=== PATIENT | male | born 1945 | race Caucasian/White ===

== ENCOUNTER → 2021-01-25 | Outpatient (CLI) | payer MEDICARE ==
[~2021-01-25] MED LIST: ALBU90OI; ALBU90OI INH; ASPI81CH PO; ATOR10 PO; Advair Hfa 230-12 GM INH; Bactrim Ds Tab1 EACH PO; CEFP200 PO; FINA5 PO; Flovent Disku100 MCG INH; IPRAOI; Lotensin Hct 21 EAC1 PO; NAPR500 PO; OXYB5 PO; Pyridium200 MG PO; [UNRECOGNIZED DRUG - REMARK]
== END | disposition home or self-care (01) ==
LOC: LAB 18:41 → LAB SHORT 18:41
DX: R30.9 Painful micturition, unspecified (principal)
CPT/HCPCS: 87077; 87086; 87186

== ENCOUNTER → 2021-03-12 | Outpatient (CLI) | payer MEDICARE | END | disposition home or self-care (01) | LOC: LAB 09:10 → LAB SHORT 09:10 | DX: H60.91 Unspecified otitis externa, right ear (principal) | CPT/HCPCS: 87070; 87077; 87147; 87186; 87205 ==

== ENCOUNTER → 2022-03-22 | Outpatient (CLI) | payer OTHER | END | disposition home or self-care (01) | LOC: LAB SHORT 14:18 → LAB 14:18 | DX: N39.0 Urinary tract infection, site not specified (principal) | CPT/HCPCS: 87077; 87086; 87186 ==

== ENCOUNTER → 2022-04-09 | Outpatient (CLI) | payer OTHER | END | disposition home or self-care (01) | LOC: LAB SHORT 16:00 → LAB 16:00 | DX: N39.0 Urinary tract infection, site not specified (principal) | CPT/HCPCS: 87077; 87086; 87186 ==

== ENCOUNTER 2023-04-29 09:56 | Day surgery (SDC) | payer OTHER ==
[~2023-04-29] VITALS: Ht 193 cm; Wt 191.8 kg
--- NOTE | 2023-04-29 10:58 | NUR ---
04/29/23 1058 Kim Simon TETRACAINE IN RIGHT EYE AT 1034. PLEDGET IN RIGHT EYE AT 1035. PATIENT TOLERATED WELL.
[2023-04-29 12:18] VITALS: BP 142/72
--- NOTE | 2023-04-29 12:23 | NUR ---
04/29/23 1223 Ninfa Orona IV REMOVED, CANNULA INTACT. PT STEPHANIE WELL. IV SITE WNL. PT DENIES PAIN AND NAUSEA
== END 2023-04-29 12:40 | disposition home or self-care (01) ==
LOC: ORSCSDS 09:56
PROVIDERS: Student in an Organized Health Care Education/Training Program
PROC: 08RJ3JZ Replacement of Right Lens with Synthetic Substitute, Percutaneous Approach (ICD-10-PCS; principal; 2023-04-29 11:00)
DX: H25.13 Age-related nuclear cataract, bilateral (principal); N40.0 Benign prostatic hyperplasia without lower urinary tract symptoms; G47.33 Obstructive sleep apnea (adult) (pediatric); I10 Essential (primary) hypertension; J44.9 Chronic obstructive pulmonary disease, unspecified; E78.5 Hyperlipidemia, unspecified; Z87.891 Personal history of nicotine dependence; K21.9 Gastro-esophageal reflux disease without esophagitis; E66.01 Morbid (severe) obesity due to excess calories; Z68.43 Body mass index [BMI] 50.0-59.9, adult; Z79.82 Long term (current) use of aspirin; Z79.899 Other long term (current) drug therapy
CPT/HCPCS: J2250; J7040; V2632

== ENCOUNTER 2023-05-13 08:13 | Day surgery (SDC) | payer OTHER ==
[~2023-05-13] VITALS: Ht 193 cm; Wt 194.7 kg
--- NOTE | 2023-05-13 08:56 | NUR ---
05/13/23 0856 Trini Tineo TETRACAINE TO LEFT EYE AT 0855 PLEDGET TO LEFT EYE AT 0856 BY [facility].[email or web address]
[2023-05-13 10:41] VITALS: BP 1520/82
--- NOTE | 2023-05-13 10:48 | NUR ---
05/13/23 1048 NILSON JOHNSON IV REMOVED - WNL. CANNULA INTACT, STEPHANIE WELL.
== END 2023-05-13 11:05 | disposition home or self-care (01) ==
LOC: ORSCSDS 08:13
PROVIDERS: Student in an Organized Health Care Education/Training Program
PROC: 08RK3JZ Replacement of Left Lens with Synthetic Substitute, Percutaneous Approach (ICD-10-PCS; principal; 2023-05-13 09:30)
DX: H25.12 Age-related nuclear cataract, left eye (principal); Z96.1 Presence of intraocular lens; I10 Essential (primary) hypertension; J44.9 Chronic obstructive pulmonary disease, unspecified; G47.33 Obstructive sleep apnea (adult) (pediatric); E66.01 Morbid (severe) obesity due to excess calories; Z68.43 Body mass index [BMI] 50.0-59.9, adult; Z79.899 Other long term (current) drug therapy; Z79.82 Long term (current) use of aspirin
CPT/HCPCS: J2250; J3010; J7040; V2632

== ENCOUNTER → 2024-11-17 | Outpatient (CLI) | payer OTHER ==
[~2024-11-17] MED LIST changes: +ALLOPURINOL100 M1 PO; +AMOX-CLAV 875-1 EAC5 PO; +BENAZEPRIL HCL40 M4 PO; +FUROSEMIDE40 MG PO; +Potassium Chlo20 ME1 PO; +SULFAMETHOXAZO1 EAC1 PO; +TAMSULOSIN HCL0.4 M1 PO; +VALACYCLOVIR1000 MG PO
[2024-11-17 13:18] LABS: BASOPHILS ABSOLUTE AUTO 0.05 K/mm3 (0.00-0.23); BASOPHILS PERCENT AUTO 1 % (0-2); EOSINOPHILS ABSOLUTE AUTO 0.16 K/mm3 (0.00-0.68); EOSINOPHILS PERCENT AUTO 2 % (0-6); Hematocrit 41.8 % (37.0-53.0); Hemoglobin 13.7 g/dL (13.5-17.5); IMMATURE GRAN ABSOLUTE AUTO 0.03 K/mm3 (0.00-0.10); IMMATURE GRAN PERCENT AUTO 0 % (0-1); LYMPHOCYTES ABSOLUTE AUTO 0.57 K/mm3 (0.84-5.20); LYMPHOCYTES PERCENT AUTO 7 % (21-46); MONOCYTES PERCENT AUTO 6 % (4-13); Mean Corpuscular HGB Conc 32.8 g/dL (31.5-36.5); Mean Corpuscular Volume 92 fL (80-100); Mean Platelet Volume 9.5 fL (9.1-12.4); NEUTROPHILS ABSOLUTE AUTO 6.56 K/mm3 (1.96-9.15); NEUTROPHILS PERCENT AUTO 83 % (41-73); Platelet Count 215 K/mm3 (150-400); RDW Coefficient Variation 14.6 % (11.7-14.2); RDW Standard Deviation 48.5 fL (35.1-46.3); Red Blood Cell Count 4.57 M/mm3 (4.30-5.90); White Blood Cell Count 7.87 K/mm3 (4.00-11.30)
[2024-11-17 13:32] LABS: Albumin, Blood 2.8 g/dL (3.4-5.0); Albumin/Globulin Ratio 0.7 (0.8-1.8); Bilirubin, Total 0.5 mg/dL (0.1-1.0); Bun/Creatinine Ratio 23.8 (12.0-20.0); Calcium, Blood 9.4 mg/dL (8.5-10.1); Creatinine, Blood 1.26 mg/dL (0.60-1.20); Globulin, Blood 4.3 g/dL (2.2-4.0); Potassium, Blood 4.1 mmol/L (3.5-5.5); Total Protein, Blood 7.1 g/dL (6.4-8.2)
== END | disposition home or self-care (01) ==
LOC: LAB SHORT 13:14 → LAB 13:14
PROVIDERS: Chiropractor
DX: L03.116 Cellulitis of left lower limb (principal)
CPT/HCPCS: 80053; 83605; 85025

== ENCOUNTER 2024-11-20 12:37 | Inpatient (IN) | payer OTHER ==
[~2024-11-20] VITALS: Ht 193 cm; Wt 182.4 kg
[~2024-11-20 12:37] MED LIST changes: -ALLOPURINOL100 M1 PO; -AMOX-CLAV 875-1 EAC5 PO; -BENAZEPRIL HCL40 M4 PO; -FUROSEMIDE40 MG PO; -Potassium Chlo20 ME1 PO; -SULFAMETHOXAZO1 EAC1 PO; -TAMSULOSIN HCL0.4 M1 PO; -VALACYCLOVIR1000 MG PO
[2024-11-20 13:40] LABS: Hematocrit 39.7 % (37.0-53.0); Mean Corpuscular HGB 29.9 pg (26.0-34.0); Mean Corpuscular HGB Conc 32.7 g/dL (31.5-36.5); Mean Corpuscular Volume 91 fL (80-100); Mean Platelet Volume 9.3 fL (9.1-12.4); Platelet Count 287 K/mm3 (150-400); RDW Coefficient Variation 14.6 % (11.7-14.2); RDW Standard Deviation 49.1 fL (35.1-46.3); Red Blood Cell Count 4.35 M/mm3 (4.30-5.90); White Blood Cell Count 9.85 K/mm3 (4.00-11.30)
[2024-11-20 13:58] LABS: Albumin, Blood 2.6 g/dL (3.4-5.0); Albumin/Globulin Ratio 0.6 (0.8-1.8); Bilirubin, Total 0.5 mg/dL (0.1-1.0); Bun/Creatinine Ratio 17.1 (12.0-20.0); Calcium, Blood 9.2 mg/dL (8.5-10.1); Creatinine, Blood 1.11 mg/dL (0.60-1.20); Globulin, Blood 4.4 g/dL (2.2-4.0); Potassium, Blood 4.1 mmol/L (3.5-5.5)
[2024-11-20] MEDS ORDERED: AMOX-CLAV 875-1 EAC5 PO (14:01)
[2024-11-20] MEDS ORDERED: VALACYCLOVIR1000 MG PO (14:01)
[2024-11-20] MEDS ORDERED: SULFAMETHOXAZO1 EAC1 PO (14:01)
[2024-11-20] MEDS ORDERED: BENAZEPRIL HCL40 M4 PO (14:02)
[2024-11-20] MEDS ORDERED: FINA5 PO (14:02)
[2024-11-20] MEDS ORDERED: FUROSEMIDE40 MG PO (14:02)
[2024-11-20] MEDS ORDERED: TAMSULOSIN HCL0.4 M1 PO (14:02)
[2024-11-20] MEDS ORDERED: Potassium Chlo20 ME1 PO (14:02)
[2024-11-20] MEDS ORDERED: ALLOPURINOL100 M1 PO (14:02)
[2024-11-20 14:08] LABS: BAND PERCENT MAN 3 % (0-8); BASOPHILS PERCENT MAN 0 % (0-2); EOSINOPHILS ABSOLUTE MAN 0.29 K/mm3 (0.00-0.68); EOSINOPHILS PERCENT MAN 3 % (0-6); LYMPHOCYTES ABSOLUTE MAN 0.78 K/mm3 (0.84-5.20); LYMPHOCYTES PERCENT MAN 8 % (21-46); METAMYELOCYTE ABSOLUTE MAN 0.09 K/mm3 (0.00-0.00); METAMYELOCYTE PERCENT MAN 1 % (0-0); MONOCYTES ABSOLUTE MAN 0.59 K/mm3 (0.16-1.47); MONOCYTES PERCENT MAN 6 % (4-13); MYELOCYTE ABSOLUTE MAN 0.19 K/mm3 (0.00-0.00); MYELOCYTE PERCENT MAN 2 % (0-0); NEUTROPHILS ABSOLUTE MAN 7.88 K/mm3 (1.96-9.15); SEG NEUTROPHILS PERCENT MAN 77 % (41-73); TOTAL CELLS COUNTED 100
[2024-11-20] MEDS ORDERED: CeFAZolin Sodium 2,000 MG in NS 100 ML IV ONE (14:50)
[2024-11-20] MEDS ORDERED: Vancomycin HCL 2,500 MG in NS 500 ML IV ONE (14:55)
[2024-11-20] MEDS ORDERED: FLU VACC TS2024-25(6MOS UP)/PF 45 MCG/0.5 ML SYRINGE IM SCH (15:25)
[2024-11-20] MEDS ORDERED: Mometasone/Formoterol MDI 200/5 mcg 13 GM INH SCH (15:30)
[2024-11-20] MEDS ORDERED: Albuterol HFA200 ACT/6.7 GM INH INH PRN (15:30)
[2024-11-20] MEDS ORDERED: NS 250 ML IV PRN (16:55)
[2024-11-20 17:11] VITALS: BP 153/91
--- NOTE | 2024-11-20 17:48 | NUR ---
pt arrived to 340 via gurney from ED, he is able to stand and tx to bed with assisst, a/ox4, pleasant and cooperative with care, follows commands well, denies pain at this time, as long as his leg is elevated, lungs are clear t/o, resp even and unlabored, uses cpap at hs without bleed in, no cough noted, hrr, edema noted to left le, piv to lac, site is clear and patent, infusing vanco as ordered, btx4, abd large soft nontender, voids without diff, skin has bright red lle, outlined line of demarcation, no open area, 4+ edema noted, rle is cool to touch, unable to palpate pulses, but found by doppler on both feet, jackson grover, oriented to room layout and call system, call light in reach.
[2024-11-20] MEDS ORDERED: Tamsulosin HCl 0.4 MG Cap PO SCH (18:00)
[2024-11-20 19:58] VITALS: BP 123/63
[2024-11-20] MEDS ORDERED: FentaNYL Citrate 50 MCG/ML 2 ML Injection IV PRN (20:25)
[2024-11-20] MEDS ORDERED: Lactobacil 2-S.Thermo-Bifido 1 1 Cap PO SCH (21:00)
[2024-11-20] MEDS ORDERED: CeFAZolin Sodium 1,000 MG in NS 50 ML IV SCH (23:00)
[2024-11-21] MEDS ORDERED: Vancomycin HCL 1,500 MG in NS 250 ML IV SCH (03:00)
--- NOTE | 2024-11-21 04:17 | NUR ---
SHIFT SUMMARY PATIENT HAD NO ACUTE CHANGES. ALERT ORIENTED AND HEAVY ONE ASSIST W/FWW TO BSC. RT SETUP HOME CPAP. ON ROOM AIR. DENIES CHEST PAIN, SOB, AND N/V. VSS/AFEBRILE. PIV INTACT. IV ABX INFUSED. SLEPT ON/OFF. CALL LIGHT IN REACH. BED IN LOWEST POSITION. WILL CONTINUE TO MONITOR UNTIL DAY SHIFT NURSE ASSUMES CARE.
[2024-11-21 04:30] VITALS: BP 161/87
[2024-11-21 05:31] LABS: Hematocrit 36.5 % (37.0-53.0); Hemoglobin 11.8 g/dL (13.5-17.5); Mean Corpuscular HGB 29.7 pg (26.0-34.0); Mean Corpuscular HGB Conc 32.3 g/dL (31.5-36.5); Mean Corpuscular Volume 92 fL (80-100); Mean Platelet Volume 9.1 fL (9.1-12.4); Platelet Count 263 K/mm3 (150-400); RDW Coefficient Variation 14.6 % (11.7-14.2); RDW Standard Deviation 49.5 fL (35.1-46.3); Red Blood Cell Count 3.97 M/mm3 (4.30-5.90); White Blood Cell Count 7.23 K/mm3 (4.00-11.30)
[2024-11-21 05:54] LABS: BAND PERCENT MAN 2 % (0-8); BASOPHILS PERCENT MAN 0 % (0-2); EOSINOPHILS ABSOLUTE MAN 0.21 K/mm3 (0.00-0.68); EOSINOPHILS PERCENT MAN 3 % (0-6); LYMPHOCYTES ABSOLUTE MAN 0.86 K/mm3 (0.84-5.20); LYMPHOCYTES PERCENT MAN 12 % (21-46); METAMYELOCYTE ABSOLUTE MAN 0.21 K/mm3 (0.00-0.00); METAMYELOCYTE PERCENT MAN 3 % (0-0); MONOCYTES ABSOLUTE MAN 0.65 K/mm3 (0.16-1.47); MONOCYTES PERCENT MAN 9 % (4-13); MYELOCYTE ABSOLUTE MAN 0.14 K/mm3 (0.00-0.00); MYELOCYTE PERCENT MAN 2 % (0-0); NEUTROPHILS ABSOLUTE MAN 5.13 K/mm3 (1.96-9.15); SEG NEUTROPHILS PERCENT MAN 69 % (41-73); TOTAL CELLS COUNTED 100
[2024-11-21 06:08] LABS: Albumin, Blood 2.4 g/dL (3.4-5.0); Albumin/Globulin Ratio 0.6 (0.8-1.8); Bilirubin, Total 0.5 mg/dL (0.1-1.0); Bun/Creatinine Ratio 15.2 (12.0-20.0); Calcium, Blood 8.6 mg/dL (8.5-10.1); Creatinine, Blood 1.12 mg/dL (0.60-1.20); Globulin, Blood 4.1 g/dL (2.2-4.0); Potassium, Blood 3.8 mmol/L (3.5-5.5); Total Protein, Blood 6.5 g/dL (6.4-8.2)
[2024-11-21 07:24] VITALS: BP 140/61
[2024-11-21] MEDS ORDERED: Allopurinol 100 MG Tab PO SCH (09:00)
[2024-11-21] MEDS ORDERED: Furosemide 40 MG Tab PO SCH (09:00)
[2024-11-21] MEDS ORDERED: Enoxaparin 40 MG/0.4 ML SYR SC SCH ×2 (09:00)
[2024-11-21] MEDS ORDERED: Lisinopril 20 MG Tab PO SCH (09:00)
[2024-11-21] MEDS ORDERED: Finasteride 5 MG Tab PO SCH (09:00)
[2024-11-21] MEDS ORDERED: Potassium Chloride 20 MEQ TabCR PO SCH (09:00)
--- NOTE | 2024-11-21 09:00 | NUR ---
pt resting in bed, a/ox4, pleasant and coopertive with care, follows commands well, states he finally got to sleep at 0400, left leg is less bright red, states it feel a bit better as well, skin doesn't look quite as tight, states it feels some better, call light in reach.
[2024-11-21] MEDS ORDERED: Clindamycin 900mg in D5W 50ML 50 ML IV SCH (10:00)
[2024-11-21 14:17] LABS: Hematocrit 38.3 % (37.0-53.0); Hemoglobin 12.6 g/dL (13.5-17.5); Mean Corpuscular HGB 30.3 pg (26.0-34.0); Mean Corpuscular HGB Conc 32.9 g/dL (31.5-36.5); Mean Corpuscular Volume 92 fL (80-100); Mean Platelet Volume 9.1 fL (9.1-12.4); Platelet Count 293 K/mm3 (150-400); RDW Coefficient Variation 14.7 % (11.7-14.2); RDW Standard Deviation 50.2 fL (35.1-46.3); Red Blood Cell Count 4.16 M/mm3 (4.30-5.90); White Blood Cell Count 6.96 K/mm3 (4.00-11.30)
[2024-11-21 14:30] VITALS: BP 123/70
[2024-11-21 14:39] LABS: BAND PERCENT MAN 3 % (0-8); METAMYELOCYTE ABSOLUTE MAN 0.06 K/mm3 (0.00-0.00); METAMYELOCYTE PERCENT MAN 1 % (0-0); TOTAL CELLS COUNTED 100
[2024-11-21 14:42] LABS: BASOPHILS ABSOLUTE MAN 0.06 K/mm3 (0.00-0.23); BASOPHILS PERCENT MAN 1 % (0-2); EOSINOPHILS ABSOLUTE MAN 0.13 K/mm3 (0.00-0.68); EOSINOPHILS PERCENT MAN 2 % (0-6); LYMPHOCYTES ABSOLUTE MAN 0.97 K/mm3 (0.84-5.20); LYMPHOCYTES PERCENT MAN 14 % (21-46); MONOCYTES ABSOLUTE MAN 0.76 K/mm3 (0.16-1.47); MONOCYTES PERCENT MAN 11 % (4-13); MYELOCYTE ABSOLUTE MAN 0.41 K/mm3 (0.00-0.00); MYELOCYTE PERCENT MAN 6 % (0-0); NEUTROPHILS ABSOLUTE MAN 4.52 K/mm3 (1.96-9.15); SEG NEUTROPHILS PERCENT MAN 62 % (41-73)
[2024-11-21 14:46] LABS: C-REACTIVE PROTEIN, EXT RANGE 14.5 mg/dL (0.000-0.300)
[2024-11-21 14:50] LABS: Albumin, Blood 2.6 g/dL (3.4-5.0); Albumin/Globulin Ratio 0.6 (0.8-1.8); Bilirubin, Total 0.4 mg/dL (0.1-1.0); Bun/Creatinine Ratio 14.5 (12.0-20.0); Calcium, Blood 9.1 mg/dL (8.5-10.1); Creatinine, Blood 1.1 mg/dL (0.60-1.20); Globulin, Blood 4.5 g/dL (2.2-4.0); Potassium, Blood 4.1 mmol/L (3.5-5.5); Total Protein, Blood 7.1 g/dL (6.4-8.2); Uric Acid, Blood 5.8 mg/dL (3.5-7.2)
--- NOTE | 2024-11-21 18:40 | NUR ---
pt has improved throughout the day, he is able to ambulate to the bathroom today, has not complained of pain today, ortho saw him, ct scan was done, no further changes, call light in reach.
[2024-11-21 19:57] VITALS: BP 124/94
[2024-11-22 02:22] LABS: Vancomycin, Trough 18.3 ug/mL (5.0-10.0)
[2024-11-22 04:59] VITALS: BP 129/63
--- NOTE | 2024-11-22 05:46 | NUR ---
PT A&O X4, VS WNL, PT ON RA DURING DAY, AND THEN ON CPAP AT NIGHT. PT CONTINENT OF B&B, OUTPUT WNL, AND HAD X1 STOOL THIS SHIFT. UP WITH CGA AND FWW, CAN AMBULATE SHORT DISTANCE WITH MODERATE PAIN IN LLE. PT LEG WITH SWELLING, PAIN, REDNESS, AND WARM TO TOUCH, EDEMA IS PITTING, AND > THEN RLE. CELLULITIS IS MARKED. PT REMAINS ON IVABX, ON CONTACT ISOLATION FOR A H/O MRSA FROM 2022, NO OPEN WOUNDS AT THIS TIME. PT CBG 121 WITH NO COVERAGE. PT IS NOT A CANNIDATE FOR SCD'S D/T CELLULITIS, AND IS ON LOVENOX. PLAN TO ADMINISTER IVABX FOR 48-72 HRS. PT DECLINED PAIN MEDS.
[2024-11-22 07:25] LABS: Hemoglobin 13.2 g/dL (13.5-17.5); Mean Corpuscular HGB 30.1 pg (26.0-34.0); Mean Corpuscular Volume 91 fL (80-100); Platelet Count 329 K/mm3 (150-400); RDW Coefficient Variation 14.5 % (11.7-14.2); RDW Standard Deviation 48.9 fL (35.1-46.3); Red Blood Cell Count 4.39 M/mm3 (4.30-5.90); White Blood Cell Count 7.17 K/mm3 (4.00-11.30)
[2024-11-22 07:45] LABS: BASOPHILS ABSOLUTE MAN 0.14 K/mm3 (0.00-0.23); BASOPHILS PERCENT MAN 2 % (0-2); EOSINOPHILS ABSOLUTE MAN 0.14 K/mm3 (0.00-0.68); EOSINOPHILS PERCENT MAN 2 % (0-6); LYMPHOCYTES % ATYPICAL MANUAL 1 % (0-0); LYMPHOCYTES ABSOLUTE MAN 1.29 K/mm3 (0.84-5.20); LYMPHOCYTES PERCENT MAN 17 % (21-46); METAMYELOCYTE ABSOLUTE MAN 0.43 K/mm3 (0.00-0.00); METAMYELOCYTE PERCENT MAN 6 % (0-0); MONOCYTES ABSOLUTE MAN 0.71 K/mm3 (0.16-1.47); MONOCYTES PERCENT MAN 10 % (4-13); NEUTROPHILS ABSOLUTE MAN 4.44 K/mm3 (1.96-9.15); SEG NEUTROPHILS PERCENT MAN 62 % (41-73); TOTAL CELLS COUNTED 100
[2024-11-22 07:48] LABS: Albumin, Blood 2.5 g/dL (3.4-5.0); Albumin/Globulin Ratio 0.5 (0.8-1.8); Bilirubin, Total 0.4 mg/dL (0.1-1.0); Bun/Creatinine Ratio 15.2 (12.0-20.0); Calcium, Blood 8.9 mg/dL (8.5-10.1); Creatinine, Blood 1.05 mg/dL (0.60-1.20); Globulin, Blood 4.6 g/dL (2.2-4.0); Potassium, Blood 4.1 mmol/L (3.5-5.5); Total Protein, Blood 7.1 g/dL (6.4-8.2)
[2024-11-22 07:51] VITALS: BP 121/63
[2024-11-22] MEDS ORDERED: Polyethylene Glycol 3350 17 gm PO PRN (13:40)
[2024-11-22] MEDS ORDERED: Docusate Sodium/Senna 1 Tab PO PRN (13:45)
[2024-11-22 16:00] VITALS: BP 140/68
--- NOTE | 2024-11-22 18:11 | NUR ---
SHIFT SUMMARY PT CONT LEVEL OF CARE WITH NO ACUTE CHANGES NOTED. PT NOTED TO BE A&O X4 AND SBA TO RESTROOM. PLAN IS TO CONT WITH IV ABT.
[2024-11-22] MEDS ORDERED: Zyrtec10 MG PO (19:16)
[2024-11-22] MEDS ORDERED: OLOPATADINE HCL5 ML BOTHEYES (19:17)
[2024-11-22 19:56] VITALS: BP 124/54
[2024-11-23 03:26] VITALS: BP 126/72
--- NOTE | 2024-11-23 03:51 | NUR ---
AAOX4, INDEPENDENT TO BSC. CPAP @ . PT THINKS LLE IS LESS RED AND SWOLLEN. NO ACUTE NEEDS OR COMPLAINTS OVERNIGHT.
[2024-11-23 08:24] VITALS: BP 125/55
[2024-11-23 11:00] LABS: BASOPHILS ABSOLUTE AUTO 0.11 K/mm3 (0.00-0.23); BASOPHILS PERCENT AUTO 2 % (0-2); EOSINOPHILS ABSOLUTE AUTO 0.08 K/mm3 (0.00-0.68); EOSINOPHILS PERCENT AUTO 1 % (0-6); Hematocrit 34.8 % (37.0-53.0); Hemoglobin 11.3 g/dL (13.5-17.5); IMMATURE GRAN ABSOLUTE AUTO 0.65 K/mm3 (0.00-0.10); IMMATURE GRAN PERCENT AUTO 10 % (0-1); LYMPHOCYTES ABSOLUTE AUTO 0.72 K/mm3 (0.84-5.20); LYMPHOCYTES PERCENT AUTO 11 % (21-46); MONOCYTES ABSOLUTE AUTO 0.59 K/mm3 (0.16-1.47); MONOCYTES PERCENT AUTO 9 % (4-13); Mean Corpuscular HGB 29.6 pg (26.0-34.0); Mean Corpuscular HGB Conc 32.5 g/dL (31.5-36.5); Mean Corpuscular Volume 91 fL (80-100); Mean Platelet Volume 9.1 fL (9.1-12.4); NEUTROPHILS ABSOLUTE AUTO 4.44 K/mm3 (1.96-9.15); NEUTROPHILS PERCENT AUTO 67 % (41-73); Platelet Count 306 K/mm3 (150-400); RDW Coefficient Variation 14.5 % (11.7-14.2); RDW Standard Deviation 48.4 fL (35.1-46.3); Red Blood Cell Count 3.82 M/mm3 (4.30-5.90); White Blood Cell Count 6.59 K/mm3 (4.00-11.30)
[2024-11-23 11:30] LABS: BASOPHILS PERCENT MAN 0 % (0-2); EOSINOPHILS PERCENT MAN 0 % (0-6); LYMPHOCYTES ABSOLUTE MAN 0.72 K/mm3 (0.84-5.20); LYMPHOCYTES PERCENT MAN 11 % (21-46); METAMYELOCYTE ABSOLUTE MAN 0.39 K/mm3 (0.00-0.00); METAMYELOCYTE PERCENT MAN 6 % (0-0); MONOCYTES ABSOLUTE MAN 0.46 K/mm3 (0.16-1.47); MONOCYTES PERCENT MAN 7 % (4-13); SEG NEUTROPHILS PERCENT MAN 76 % (41-73); TOTAL CELLS COUNTED 100
[2024-11-23 11:31] LABS: Bun/Creatinine Ratio 15.1 (12.0-20.0); C-REACTIVE PROTEIN, EXT RANGE 9.28 mg/dL (0.000-0.300); Calcium, Blood 8.6 mg/dL (8.5-10.1); Creatinine, Blood 0.93 mg/dL (0.60-1.20); Potassium, Blood 3.7 mmol/L (3.5-5.5)
[2024-11-23 15:35] VITALS: BP 112/67
--- NOTE | 2024-11-23 18:07 | NUR ---
SHIFT SUMMARY PT IS A/OX4. NO ACUTE CHANGES THROUGHOUT THIS SHIFT. INDEPENDENT TO THE BATHROOM. PT REPORTS DECREASED SWELLING AND PAIN TO THE LEFT LOWER EXTREMITY TODAY. PT ALSO REPORTS CHRONIC PAIN TO THE RIGHT SHOULDER, REPORTING IT IS "BONE ON BONE". CONTINUING IV ANTIBIOTICS. PT CALLS APPROPRIATELY USING THE CALL LIGHT.
[2024-11-23 19:32] VITALS: BP 119/66
[2024-11-23] MEDS ORDERED: OxyCODONE HCL 5 MG TAB PO PRN (19:45)
[2024-11-24 02:27] LABS: Vancomycin, Trough 22.5 ug/mL (5.0-10.0)
[2024-11-24 03:37] VITALS: BP 110/57
--- NOTE | 2024-11-24 04:43 | NUR ---
SHIFT SUMMARY NOC PT A/O X 4. PLEASANT AND COOPERATIVE WITH CARE. VSS. NO ACUTE CHANGES TO REPORT. LLE RED AND WARM TO TOUCH WITH BORDER IN PLACE. PAIN BEING MANAGED PER EMA. [facility]. PT USING CPAP @ NOC FOR SLEEP. PT USING BSC/BATHROOM INDEPDENTLY. PT CURRENTLY RESTING WITH BED IN LOWEST POSITION, AND CALL LIGHT WITHIN REACH.
[2024-11-24 07:32] VITALS: BP 125/57
[2024-11-24 08:10] LABS: BASOPHILS PERCENT AUTO 1 % (0-2); EOSINOPHILS PERCENT AUTO 1 % (0-6); Hematocrit 36.6 % (37.0-53.0); Hemoglobin 12.2 g/dL (13.5-17.5); IMMATURE GRAN ABSOLUTE AUTO 0.57 K/mm3 (0.00-0.10); IMMATURE GRAN PERCENT AUTO 8 % (0-1); LYMPHOCYTES ABSOLUTE AUTO 0.74 K/mm3 (0.84-5.20); LYMPHOCYTES PERCENT AUTO 10 % (21-46); MONOCYTES ABSOLUTE AUTO 0.59 K/mm3 (0.16-1.47); MONOCYTES PERCENT AUTO 8 % (4-13); Mean Corpuscular HGB 30.3 pg (26.0-34.0); Mean Corpuscular HGB Conc 33.3 g/dL (31.5-36.5); Mean Corpuscular Volume 91 fL (80-100); Mean Platelet Volume 8.9 fL (9.1-12.4); NEUTROPHILS ABSOLUTE AUTO 5.32 K/mm3 (1.96-9.15); NEUTROPHILS PERCENT AUTO 72 % (41-73); Platelet Count 308 K/mm3 (150-400); RDW Coefficient Variation 14.5 % (11.7-14.2); RDW Standard Deviation 48.2 fL (35.1-46.3); Red Blood Cell Count 4.02 M/mm3 (4.30-5.90); White Blood Cell Count 7.42 K/mm3 (4.00-11.30)
[2024-11-24 08:29] LABS: Bun/Creatinine Ratio 13.9 (12.0-20.0); C-REACTIVE PROTEIN, EXT RANGE 7.6 mg/dL (0.000-0.300); Calcium, Blood 8.7 mg/dL (8.5-10.1); Creatinine, Blood 0.94 mg/dL (0.60-1.20); Potassium, Blood 3.9 mmol/L (3.5-5.5)
[2024-11-24 08:38] LABS: BAND PERCENT MAN 1 % (0-8); BASOPHILS PERCENT MAN 0 % (0-2); EOSINOPHILS PERCENT MAN 0 % (0-6); LYMPHOCYTES ABSOLUTE MAN 0.66 K/mm3 (0.84-5.20); LYMPHOCYTES PERCENT MAN 9 % (21-46); METAMYELOCYTE ABSOLUTE MAN 0.37 K/mm3 (0.00-0.00); METAMYELOCYTE PERCENT MAN 5 % (0-0); MONOCYTES ABSOLUTE MAN 0.74 K/mm3 (0.16-1.47); MONOCYTES PERCENT MAN 10 % (4-13); NEUTROPHILS ABSOLUTE MAN 5.63 K/mm3 (1.96-9.15); SEG NEUTROPHILS PERCENT MAN 75 % (41-73); TOTAL CELLS COUNTED 100
[2024-11-24] MEDS ORDERED: Vancomycin HCL 1,750 MG in NS 500 ML IV SCH (11:00)
[2024-11-24 16:56] VITALS: BP 137/64
--- NOTE | 2024-11-24 19:22 | NUR ---
SHIFT SUMMARY PATIENT A/OX4, ABLE TO MAKE NEEDS KNOWN. INDEPENDENT IN ROOM. CONTINUOUS PULSE OX IN PLACE. PATIENT DENIED NEED FOR PAIN MEDICATIONS TODAY, BUT COMPLAINING OF PAIN TO LEFT LEG R/T CELLULITIS. IV VANCO ADMINISTERED PER OCT. PATIENT WITH MULTIPLE VISITORS THROUGHOUT THE SHIFT. NO OTHER CONCERNS AT THIS TIME, BEDSIDE SHIFT REPORT PROVIDED TO BAREBACK RIDER RN.
[2024-11-24 19:30] VITALS: BP 116/71
--- NOTE | 2024-11-25 04:30 | NUR ---
SHIFT SUMMARY PT ALERT ORIENTED X 4 ABLE TO VERBALIZE NEEDS GETS UP TO BEDSIDE COMMODE AD DON. LT LEG REMAINS SLIGHTLY REDDENED BUT IS LOOKING BETTER. C/O PAIN TO AREA MEDICATED WITH OXY WITH GOOD PAIN RELIEF. REMAINS ON A CPAP AT NIGHT. VSS SATTING AT 96%. REMAINS ON VANCO QDAY. CONTINUES ON A CONTINUOUS PULSE OX.
[2024-11-25 04:45] VITALS: BP 130/71
[2024-11-25 07:17] LABS: Hematocrit 37.1 % (37.0-53.0); Hemoglobin 12.1 g/dL (13.5-17.5); Mean Corpuscular HGB 29.7 pg (26.0-34.0); Mean Corpuscular HGB Conc 32.6 g/dL (31.5-36.5); Mean Corpuscular Volume 91 fL (80-100); Mean Platelet Volume 8.8 fL (9.1-12.4); Platelet Count 294 K/mm3 (150-400); RDW Coefficient Variation 14.3 % (11.7-14.2); RDW Standard Deviation 47.9 fL (35.1-46.3); Red Blood Cell Count 4.07 M/mm3 (4.30-5.90); White Blood Cell Count 7.45 K/mm3 (4.00-11.30)
[2024-11-25 07:41] LABS: Bun/Creatinine Ratio 15.2 (12.0-20.0); C-REACTIVE PROTEIN, EXT RANGE 6.75 mg/dL (0.000-0.300); Calcium, Blood 8.6 mg/dL (8.5-10.1); Creatinine, Blood 0.99 mg/dL (0.60-1.20); Potassium, Blood 3.9 mmol/L (3.5-5.5)
[2024-11-25 07:53] VITALS: BP 134/53
[2024-11-25 09:28] LABS: BAND PERCENT MAN 5 % (0-8); BASOPHILS ABSOLUTE MAN 0.14 K/mm3 (0.00-0.23); BASOPHILS PERCENT MAN 2 % (0-2); EOSINOPHILS PERCENT MAN 0 % (0-6); LYMPHOCYTES ABSOLUTE MAN 0.74 K/mm3 (0.84-5.20); LYMPHOCYTES PERCENT MAN 10 % (21-46); MONOCYTES ABSOLUTE MAN 0.96 K/mm3 (0.16-1.47); MONOCYTES PERCENT MAN 13 % (4-13); MYELOCYTE ABSOLUTE MAN 0.29 K/mm3 (0.00-0.00); MYELOCYTE PERCENT MAN 4 % (0-0); NEUTROPHILS ABSOLUTE MAN 5.28 K/mm3 (1.96-9.15); SEG NEUTROPHILS PERCENT MAN 66 % (41-73); TOTAL CELLS COUNTED 100
[2024-11-25 15:15] VITALS: BP 121/57
--- NOTE | 2024-11-25 17:59 | NUR ---
ASSUMED PT CARE 1315. PT VISITING WITH TODAY. LEG REMAINS RED, BUT IMPROVED. NO C/O PAIN FROM PT THIS SHIFT. NO NEW CONCERNS NOTED. BED IN LOW POSITION, CALL LITE IN REACH, CALLS APPROP
[2024-11-25 19:02] VITALS: BP 136/60
[2024-11-26 04:26] VITALS: BP 114/69
--- NOTE | 2024-11-26 05:35 | NUR ---
shift summary. This patient maintain a calm shift with us, nil fresh complaint all His due medication where served,ie injection enoxperin ,probiotic,vencomycin and prn pain medication continues his cpap at night time, complain a ight pain oxycodine was given. Gets up his comode and adlib, call line enreached.his left leg with cellulites has been decrease with the reddness resolving.
[2024-11-26 07:09] VITALS: BP 118/67
[2024-11-26 07:17] LABS: BASOPHILS PERCENT AUTO 1 % (0-2); EOSINOPHILS ABSOLUTE AUTO 0.12 K/mm3 (0.00-0.68); EOSINOPHILS PERCENT AUTO 1 % (0-6); Hematocrit 38.8 % (37.0-53.0); Hemoglobin 12.6 g/dL (13.5-17.5); IMMATURE GRAN ABSOLUTE AUTO 0.36 K/mm3 (0.00-0.10); IMMATURE GRAN PERCENT AUTO 4 % (0-1); LYMPHOCYTES PERCENT AUTO 11 % (21-46); MONOCYTES ABSOLUTE AUTO 0.76 K/mm3 (0.16-1.47); MONOCYTES PERCENT AUTO 9 % (4-13); Mean Corpuscular HGB 29.9 pg (26.0-34.0); Mean Corpuscular HGB Conc 32.5 g/dL (31.5-36.5); Mean Corpuscular Volume 92 fL (80-100); Mean Platelet Volume 9.1 fL (9.1-12.4); NEUTROPHILS ABSOLUTE AUTO 6.16 K/mm3 (1.96-9.15); NEUTROPHILS PERCENT AUTO 73 % (41-73); Platelet Count 359 K/mm3 (150-400); RDW Coefficient Variation 14.3 % (11.7-14.2); RDW Standard Deviation 48.3 fL (35.1-46.3); Red Blood Cell Count 4.22 M/mm3 (4.30-5.90)
[2024-11-26 07:55] LABS: Bun/Creatinine Ratio 17.3 (12.0-20.0); Calcium, Blood 9.1 mg/dL (8.5-10.1); Creatinine, Blood 1.04 mg/dL (0.60-1.20); Potassium, Blood 4.1 mmol/L (3.5-5.5)
[2024-11-26 11:07] LABS: Vancomycin, Trough 14.9 ug/mL (5.0-10.0)
[2024-11-26 16:49] VITALS: BP 119/61
--- NOTE | 2024-11-26 17:44 | NUR ---
SHIFT SUMMARY PT AOX4, COOPERATIVE, ABLE TO MAKE NEEDS KNOWN. PT IS IND TO BEDSIDE COMMONDE. DOES NOT COMPLAIN OF ANY PAIN CURRENTLY. USES CPAP APPROPRIATELY. TOLERATING IV AND PO MEDICATION APPROPRIATELY. BED IN LOWEST POSITION, CALL LIGHT WITHIN REACH.
[2024-11-26 19:40] VITALS: BP 110/57
[2024-11-27 01:11] LABS: Source, Urine Clean Catch
[2024-11-27 01:13] LABS: Appearance, Urine Clear (Clear); Bilirubin, Urine Neg (Neg); Blood, Urine 4+ (Neg); Color, Urine Yellow (P-Yellow); Glucose Qualitative, Urine Neg (Neg); Ketones, Urine Neg (Neg); Leukocyte Esterase, Urine 1+ (Neg); Nitrite, Urine Neg (Neg); Protein, Urine 3+ (Neg); Urobilinogen, Urine NORM (Normal)
--- NOTE | 2024-11-27 01:14 | NUR ---
urine sent to lab for urinalysis
[2024-11-27 01:37] LABS: Bacteria Many /hpf; Red Blood Cells, Urine 25-50 /hpf (0-2); Squamous Epithelial Cells Many /hpf (Few); White Blood Cells, Urine 0-2 /hpf (0-5)
[2024-11-27 02:50] VITALS: BP 123/69
[2024-11-27 07:14] VITALS: BP 138/77
[2024-11-27 10:20] LABS: BASOPHILS ABSOLUTE AUTO 0.07 K/mm3 (0.00-0.23); BASOPHILS PERCENT AUTO 1 % (0-2); EOSINOPHILS ABSOLUTE AUTO 0.08 K/mm3 (0.00-0.68); EOSINOPHILS PERCENT AUTO 1 % (0-6); Hematocrit 36.7 % (37.0-53.0); IMMATURE GRAN ABSOLUTE AUTO 0.15 K/mm3 (0.00-0.10); IMMATURE GRAN PERCENT AUTO 2 % (0-1); LYMPHOCYTES ABSOLUTE AUTO 0.65 K/mm3 (0.84-5.20); LYMPHOCYTES PERCENT AUTO 8 % (21-46); MONOCYTES ABSOLUTE AUTO 0.51 K/mm3 (0.16-1.47); MONOCYTES PERCENT AUTO 6 % (4-13); Mean Corpuscular HGB Conc 32.7 g/dL (31.5-36.5); Mean Corpuscular Volume 92 fL (80-100); Mean Platelet Volume 9.1 fL (9.1-12.4); NEUTROPHILS ABSOLUTE AUTO 6.53 K/mm3 (1.96-9.15); NEUTROPHILS PERCENT AUTO 82 % (41-73); Platelet Count 358 K/mm3 (150-400); RDW Coefficient Variation 14.3 % (11.7-14.2); RDW Standard Deviation 48.2 fL (35.1-46.3); White Blood Cell Count 7.99 K/mm3 (4.00-11.30)
[2024-11-27 11:56] LABS: C-REACTIVE PROTEIN, EXT RANGE 6.43 mg/dL (0.000-0.300)
[2024-11-27 11:57] LABS: Bun/Creatinine Ratio 19.4 (12.0-20.0); Calcium, Blood 9.2 mg/dL (8.5-10.1); Creatinine, Blood 1.03 mg/dL (0.60-1.20); Potassium, Blood 3.8 mmol/L (3.5-5.5)
[2024-11-27 13:08] LABS: Source, Urine Clean Catch
[2024-11-27 13:17] LABS: Bilirubin, Urine Neg (Neg); Glucose Qualitative, Urine Neg (Neg); Ketones, Urine Neg (Neg); Nitrite, Urine Neg (Neg); Urobilinogen, Urine NORM (Normal)
[2024-11-27 13:21] LABS: Appearance, Urine Clear (Clear); Blood, Urine 4+ (Neg); Leukocyte Esterase, Urine Neg (Neg); Protein, Urine 2+ (Neg); Specific Gravity, Urine 1.015 (1.003-1.022)
[2024-11-27 13:24] LABS: Color, Urine Pale Yellow (P-Yellow)
[2024-11-27 13:31] LABS: Bacteria Rare /hpf; Hyaline Casts 0-2 /lpf (0-2); Squamous Epithelial Cells Rare /hpf (Few); White Blood Cells, Urine 0-2 /hpf (0-5)
[2024-11-27] MEDS ORDERED: CeFAZolin Sodium 2,000 MG in NS 100 ML IV SCH (16:12)
[2024-11-27 19:27] VITALS: BP 134/61
--- NOTE | 2024-11-27 19:44 | NUR ---
SUMMARY- AAOX4. ON RA. MINIMAL URETHRAL PAIN THIS SHIFT; CLEAN CATCH PERFORMED. SBA. NO ACUTE EVENTS THIS SHIFT.
[2024-11-28 04:37] VITALS: BP 120/61
--- NOTE | 2024-11-28 05:40 | NUR ---
SHIFT SUMMARY PT ADMITTED FOR LEFT FOOT CELLULITIS. PT HAS IV IN RIGHT HAND. PT ABLE TO MAKE NEEDS KNOWN TO STAFF AND IS RECEPTIVE TO CARE. PT IS ABLE TO AMBULATE TO BEDSIDE COMMODE ON HIS OWN. PT IS ON ROOM AIR, AND POSSIBLE DISCHARGE IN AM. PT S BED IS IN LOW POSITION, CALL LIGHT WITHIN REACH, AND RAILS ARE TIMES 2.
[2024-11-28 07:02] LABS: BASOPHILS ABSOLUTE AUTO 0.07 K/mm3 (0.00-0.23); BASOPHILS PERCENT AUTO 1 % (0-2); EOSINOPHILS ABSOLUTE AUTO 0.13 K/mm3 (0.00-0.68); EOSINOPHILS PERCENT AUTO 2 % (0-6); Hematocrit 36.3 % (37.0-53.0); Hemoglobin 11.7 g/dL (13.5-17.5); IMMATURE GRAN ABSOLUTE AUTO 0.11 K/mm3 (0.00-0.10); IMMATURE GRAN PERCENT AUTO 2 % (0-1); LYMPHOCYTES ABSOLUTE AUTO 0.89 K/mm3 (0.84-5.20); LYMPHOCYTES PERCENT AUTO 13 % (21-46); MONOCYTES ABSOLUTE AUTO 0.65 K/mm3 (0.16-1.47); MONOCYTES PERCENT AUTO 10 % (4-13); Mean Corpuscular HGB 29.7 pg (26.0-34.0); Mean Corpuscular HGB Conc 32.2 g/dL (31.5-36.5); Mean Corpuscular Volume 92 fL (80-100); NEUTROPHILS PERCENT AUTO 73 % (41-73); Platelet Count 336 K/mm3 (150-400); RDW Standard Deviation 47.6 fL (35.1-46.3); Red Blood Cell Count 3.94 M/mm3 (4.30-5.90); White Blood Cell Count 6.85 K/mm3 (4.00-11.30)
[2024-11-28 07:26] LABS: C-REACTIVE PROTEIN, EXT RANGE 6.14 mg/dL (0.000-0.300)
[2024-11-28 07:27] LABS: Potassium, Blood 3.9 mmol/L (3.5-5.5)
[2024-11-28 08:08] VITALS: BP 115/66
[2024-11-28 14:51] VITALS: BP 110/62
--- NOTE | 2024-11-28 18:44 | NUR ---
SUMMARY- AAOX4. SBA. PT ON RA. PT HAD MINIMAL COMPLAINTS OF PAIN THIS SHIFT. NO PAIN MEDS REQUIRED. NO ACUTE EVENTS THIS SHIFT. PT'S LLE IS MUCH LESS RED/PINK COMPARED TO YESTERDAY'S ASSESSMENT.
[2024-11-28 21:06] VITALS: BP 110/60
[2024-11-29 04:37] VITALS: BP 119/58
--- NOTE | 2024-11-29 04:42 | NUR ---
SHIFT SUMMARY: PT AOX4 CALLS APPROPRIATELY ABLE TO MAKE NEEDS KNOWN. PT IND IN ROOM AND TO THE RESTROOM. ENDORSES INCREASING DYSURIA AND PAIN WHILE HE URINATES. MEDICATED PER EMR WHICH PT STATES HES ABLE TO GET SOME RELIEF. ENDORSES DIFFICULTY SLEEPING THE LAST FEW NIGHTS BUT HAS BEEN ABLE TO SLEEP A BIT TONIGHT DUE TO MEDICATIONS. TOLERAING MEDICATIONS WELL. DENIES SOB OR CP. PT IN BED RESTING, BED IN LOWEST POSITION, CALL LIGHT IN REACH. CONTINUING CARE.
[2024-11-29 06:00] LABS: BASOPHILS ABSOLUTE AUTO 0.08 K/mm3 (0.00-0.23); BASOPHILS PERCENT AUTO 1 % (0-2); EOSINOPHILS PERCENT AUTO 2 % (0-6); Hematocrit 34.1 % (37.0-53.0); Hemoglobin 11.2 g/dL (13.5-17.5); IMMATURE GRAN ABSOLUTE AUTO 0.06 K/mm3 (0.00-0.10); IMMATURE GRAN PERCENT AUTO 1 % (0-1); LYMPHOCYTES ABSOLUTE AUTO 0.71 K/mm3 (0.84-5.20); LYMPHOCYTES PERCENT AUTO 12 % (21-46); MONOCYTES ABSOLUTE AUTO 0.56 K/mm3 (0.16-1.47); MONOCYTES PERCENT AUTO 9 % (4-13); Mean Corpuscular HGB 30.4 pg (26.0-34.0); Mean Corpuscular HGB Conc 32.8 g/dL (31.5-36.5); Mean Corpuscular Volume 92 fL (80-100); Mean Platelet Volume 8.9 fL (9.1-12.4); NEUTROPHILS ABSOLUTE AUTO 4.63 K/mm3 (1.96-9.15); NEUTROPHILS PERCENT AUTO 75 % (41-73); Platelet Count 322 K/mm3 (150-400); RDW Coefficient Variation 14.2 % (11.7-14.2); RDW Standard Deviation 48.1 fL (35.1-46.3); Red Blood Cell Count 3.69 M/mm3 (4.30-5.90); White Blood Cell Count 6.14 K/mm3 (4.00-11.30)
[2024-11-29 06:35] LABS: Calcium, Blood 8.9 mg/dL (8.5-10.1); Creatinine, Blood 0.95 mg/dL (0.60-1.20); Potassium, Blood 4.1 mmol/L (3.5-5.5)
[2024-11-29 07:16] VITALS: BP 118/66
[2024-11-29 11:06] LABS: Creatinine, Blood 0.95 mg/dL (0.60-1.20); Vancomycin, Trough 13.5 ug/mL (5.0-10.0)
[2024-11-29] MEDS ORDERED: Phenazopyridine HCl 100 MG Tab PO PRN (13:00)
[2024-11-29 16:05] VITALS: BP 120/59
--- NOTE | 2024-11-29 17:58 | NUR ---
SHIFT SUMMARY: PT IS A&Ox4 AND IN GOOD SPIRITS. PT REPORTS URETHRAL PAIN AND REQUESTED MEDS FOR PAIN TWICE TODAY, RENAL ULTRASOUND ORDERED. PT DENIES CELLULITIS PAIN. PT CALLS FOR ASSISTANCE NEEDED, AMBULATES TO THE BATHROOM INDEPENDENTLY. NO ACUTE EVENTS TODAY.
[2024-11-29 20:15] VITALS: BP 108/60
[2024-11-30 02:37] VITALS: BP 125/61
--- NOTE | 2024-11-30 04:41 | NUR ---
SHIFT SUMMARY: PT AOX4 IND IN THE ROOM. PT CALLS APPROPRIATELY AND IS ABLE TO MAKE NEEDS KNOWN. USING THE RESTROOM IND, CLAIMS SOME RELIEF FROM DYSURIA. TOLERATING MEDICATIONS WELL. TOLERATING CPAP AND SATS HAVE BEEN MAINTAINED IN THE HIGH 90'S. PT SLEPT WELL, NO ACUTE EVENTS OVERNIGHT. PT IN BED SLEEPING, BED IN LOWEST POSITION, CALL LIGHT IN REACH. CONTINUING CARE.
[2024-11-30 07:03] VITALS: BP 131/61
[2024-11-30 16:47] VITALS: BP 132/65
--- NOTE | 2024-11-30 18:00 | NUR ---
SHIFT SUMMARY: PATIENT ALERT AND ORIENTED THROUGHOUT SHIFT. UP TO BATHROOM WITH SBA. LEFT LOWER EXTREMITY SWELLING WITH REDNESS. PER PATIENT SWELLING HAS IMPROVED. ON ROOM AIR. SOB WITH EXCERTION. CONTINOUS PULSE OX. DENIES CHEST PAIN THROUGHOUT SHIFT. PRN PAIN MEDICATION FOR URINARY TRACT SYMPTOMS. IV ABX INFUSED. TOLERATING PO DIET. AT BEDSIDE AND UPDATED BY THIS RN. CALL LIGHT IN REACH.
[2024-11-30 20:14] VITALS: BP 124/65
[2024-12-01 03:50] VITALS: BP 111/65
--- NOTE | 2024-12-01 04:49 | NUR ---
SHIFT SUMMARY: PT AOX4 IND IN THE ROOM. ABLE TO MAKE NEEDS KNOWN AND CALLS APPROPRIATELY. PT TOLERATING MEDICATIONS WELL. STILL COMPLAINS OF SOME DYSURIA BUT STATES THAT IT IS IMPROVING. EXPERIENCING SOME URETHRAL PAIN, MEDICATED PER EMR. NO ACUTE EVENTS OVERNIGHT. PT IN BED RESTING, BED IN LOWEST POSITION, CALL LIGHT IN REACH. CONTINUING CARE.
[2024-12-01 05:52] LABS: BASOPHILS ABSOLUTE AUTO 0.06 K/mm3 (0.00-0.23); BASOPHILS PERCENT AUTO 1 % (0-2); EOSINOPHILS ABSOLUTE AUTO 0.09 K/mm3 (0.00-0.68); EOSINOPHILS PERCENT AUTO 2 % (0-6); Hematocrit 36.5 % (37.0-53.0); IMMATURE GRAN ABSOLUTE AUTO 0.07 K/mm3 (0.00-0.10); IMMATURE GRAN PERCENT AUTO 1 % (0-1); LYMPHOCYTES ABSOLUTE AUTO 0.71 K/mm3 (0.84-5.20); LYMPHOCYTES PERCENT AUTO 12 % (21-46); MONOCYTES ABSOLUTE AUTO 0.61 K/mm3 (0.16-1.47); MONOCYTES PERCENT AUTO 11 % (4-13); Mean Corpuscular HGB 29.9 pg (26.0-34.0); Mean Corpuscular HGB Conc 32.9 g/dL (31.5-36.5); Mean Corpuscular Volume 91 fL (80-100); Mean Platelet Volume 8.8 fL (9.1-12.4); NEUTROPHILS ABSOLUTE AUTO 4.21 K/mm3 (1.96-9.15); NEUTROPHILS PERCENT AUTO 73 % (41-73); Platelet Count 330 K/mm3 (150-400); RDW Standard Deviation 47.4 fL (35.1-46.3); Red Blood Cell Count 4.01 M/mm3 (4.30-5.90); White Blood Cell Count 5.75 K/mm3 (4.00-11.30)
[2024-12-01 06:33] LABS: Bun/Creatinine Ratio 15.1 (12.0-20.0); Calcium, Blood 9.1 mg/dL (8.5-10.1); Creatinine, Blood 0.99 mg/dL (0.60-1.20)
[2024-12-01 07:04] VITALS: BP 126/66
--- NOTE | 2024-12-01 10:49 | NUR ---
INTRODUCED MYSELF TO PT EXPLAINED I WOULD BE TAKING OVER CARE FOR YOEL PT STATED THEY DID NOT NEED ANYTHING STATED THEY WERE COMFORTABLE AND WOULD CALL IF NEEDED ANYTHING PT RESTING ON SIDE IN BED WORKING ON THEIR LAPTOP
[2024-12-01 15:59] VITALS: BP 135/63
--- NOTE | 2024-12-01 17:55 | NUR ---
SHIFT SUMMARY PATIENT A/OX4, ABLE TO MAKE NEEDS KNOWN. ANUEL CROWDER WITH CARE. IV DRESSING TO RIGTH FA CHANGED. IV ANTIBIOTICS INFUSED PER OCT. LOWER EXTREMITY ULTRASOUND OBTAINED TODAY. PATIENT CONTINUES TO COMPLAIN OF DYSURIA, PYRIDIUM ADMINISTERED PER OCT. CONTINUOUS PULSE OX IN PLACE, SPO2 WNL ON ROOM AIR. NO OTHER CONCERNS AT THIS TIME.
[2024-12-01 20:16] VITALS: BP 114/57
[2024-12-02 02:12] VITALS: BP 116/56
--- NOTE | 2024-12-02 06:08 | NUR ---
SHIFT SUMMARY PT HAS BEEN RESTING IN BED COMFORTABLY OVERNIGHT. HE HAS BEEN CALM AND COOPERATIVE. PT HAS BEEN ON CPAP FOR MOST OF NIGHT. HE HAS BEEN INDEPENDENT TO BATHROOM. ONLY ISSUE PT HAS HAD IS URINARY FREQUENCY AND PAIN, HE NEEDED TO URINATE ALMOST EVERY HOUR. PT ALSO HAS CELLULITIS ON LLE. HOWEVER, HE HAS NOT COMPLAINED OF PAIN THERE. HE HAS COMPLAINED OF PAIN IN IS URETHRA. PT HAS HAD NO OTHER COMPLAINTS. HE HAS HAD UNEVENTFUL NIGHT.
[2024-12-02 08:00] VITALS: BP 123/61
[2024-12-02 10:13] LABS: BASOPHILS ABSOLUTE AUTO 0.08 K/mm3 (0.00-0.23); BASOPHILS PERCENT AUTO 2 % (0-2); EOSINOPHILS ABSOLUTE AUTO 0.05 K/mm3 (0.00-0.68); EOSINOPHILS PERCENT AUTO 1 % (0-6); Hematocrit 37.3 % (37.0-53.0); Hemoglobin 12.2 g/dL (13.5-17.5); IMMATURE GRAN ABSOLUTE AUTO 0.04 K/mm3 (0.00-0.10); IMMATURE GRAN PERCENT AUTO 1 % (0-1); LYMPHOCYTES PERCENT AUTO 11 % (21-46); MONOCYTES ABSOLUTE AUTO 0.47 K/mm3 (0.16-1.47); MONOCYTES PERCENT AUTO 9 % (4-13); Mean Corpuscular HGB 30.3 pg (26.0-34.0); Mean Corpuscular HGB Conc 32.7 g/dL (31.5-36.5); Mean Corpuscular Volume 93 fL (80-100); Mean Platelet Volume 8.9 fL (9.1-12.4); NEUTROPHILS ABSOLUTE AUTO 4.18 K/mm3 (1.96-9.15); NEUTROPHILS PERCENT AUTO 77 % (41-73); Platelet Count 327 K/mm3 (150-400); RDW Standard Deviation 47.3 fL (35.1-46.3); Red Blood Cell Count 4.02 M/mm3 (4.30-5.90); White Blood Cell Count 5.42 K/mm3 (4.00-11.30)
[2024-12-02 10:38] LABS: Vancomycin, Trough 13.8 ug/mL (5.0-10.0)
[2024-12-02 10:45] LABS: Bun/Creatinine Ratio 13.7 (12.0-20.0); Calcium, Blood 9.2 mg/dL (8.5-10.1); Creatinine, Blood 1.02 mg/dL (0.60-1.20)
[2024-12-02] MEDS ORDERED: PHENA200 PO (14:04)
[2024-12-02] MEDS ORDERED: VISBIOME 112.51 EACH PO (14:05)
--- NOTE | 2024-12-02 14:16 | NUR ---
DISCHARGE NOTE PATIENT A/OX4, ABLE TO MAKE NEEDS KNOWN. PLEASANT ADN COOPERATIVE WITH CARE. IDNPENDENT INROOM. CONTINUES TO COMPLAIN OF DYSURIA, OUTPATIENT UROLOGY APPOINTMENT RECOMMENDED. IVs REMOVED PRIOR TO DISCHARGE. PLAN TO HAVE IV ANTIBIOTICS INFUSED DAILY AT [facility], PATIENT HAS SCHEDULED DAILY APPOINTMENT. PATIENT AGREEABLE TO DISCHARGE PLAN, CONTINUOUS PULSE OX REMOVED. NO OTHER CONCERNS AT THIS TIME. PATIENT AWAITING FAMILY FRIEND FOR TRANSPORT AND WILL BE ASSISTED TO VEHICLE VIA WHEELCHAIR TRANSPORTATION. ALL BELONGINGS PACKED UP AND READY FOR PATIENT. NO OTHER CONCERNS.
== END 2024-12-02 15:25 | disposition home or self-care (01) | DRG 603 ==
LOC: ER 12:37 → ERHOLD 15:19 → MEDS 15:19
PROVIDERS: Family Medicine; Hospitalist; Internal Medicine; Physician Assistant; ADMIT Family Medicine
DX: L03.116 Cellulitis of left lower limb (principal); Z68.42 Body mass index [BMI] 45.0-49.9, adult; E66.01 Morbid (severe) obesity due to excess calories; I10 Essential (primary) hypertension; E78.00 Pure hypercholesterolemia, unspecified; Z96.661 Presence of right artificial ankle joint; J45.20 Mild intermittent asthma, uncomplicated; N40.0 Benign prostatic hyperplasia without lower urinary tract symptoms; R30.0 Dysuria; F10.10 Alcohol abuse, uncomplicated; G47.33 Obstructive sleep apnea (adult) (pediatric); Z79.899 Other long term (current) drug therapy; Z79.51 Long term (current) use of inhaled steroids; Z79.82 Long term (current) use of aspirin; Z79.2 Long term (current) use of antibiotics; Z87.440 Personal history of urinary (tract) infections; Z98.890 Other specified postprocedural states; Z90.49 Acquired absence of other specified parts of digestive tract; Z99.89 Dependence on other enabling machines and devices; Z87.891 Personal history of nicotine dependence
CPT/HCPCS: 36415; 73701; 76770; 80048; 80053; 80202; 81001; 82550; 82565; 82947; 83605; 84550; 85025; 85651; 86140; 87086; 93926; 93971; 94640; 94664; 94760; 94762; 96365; 96366; 96368; 97110; 97116; 97162; 97530; 99285-25; A9270; G0378; J0690; J1650; J3010; J3370; J7040; J7050; Q9967

== ENCOUNTER 2024-12-03 04:04 | Day surgery (SDC) | payer OTHER ==
[~2024-12-03 04:04] MED LIST changes: +ALLOPURINOL100 M1 PO; +AMOX-CLAV 875-1 EAC5 PO; +BENAZEPRIL HCL40 M4 PO; +FUROSEMIDE40 MG PO; +OLOPATADINE HCL5 ML BOTHEYES; +PHENA200 PO; +Potassium Chlo20 ME1 PO; +SULFAMETHOXAZO1 EAC1 PO; +TAMSULOSIN HCL0.4 M1 PO; +VALACYCLOVIR1000 MG PO; +VISBIOME 112.51 EACH PO; +Zyrtec10 MG PO
[2024-12-03] MEDS ORDERED: CefTRIAXone Sodium 2,000 MG in NS 100 ML IV SCH (06:00)
[2024-12-03 11:55] VITALS: BP 100/72
== END 2024-12-03 12:16 | disposition home or self-care (01) ==
LOC: ATC 04:04
DX: L03.116 Cellulitis of left lower limb (principal); E66.01 Morbid (severe) obesity due to excess calories; I10 Essential (primary) hypertension; G47.33 Obstructive sleep apnea (adult) (pediatric); Z99.89 Dependence on other enabling machines and devices; E78.5 Hyperlipidemia, unspecified; Z87.891 Personal history of nicotine dependence; Z88.8 Allergy status to other drugs, medicaments and biological substances; Z79.899 Other long term (current) drug therapy
CPT/HCPCS: 96365; J0696

== ENCOUNTER 2024-12-04 00:46 | Day surgery (SDC) | payer OTHER ==
[2024-12-04] MEDS ORDERED: CefTRIAXone Sodium 2,000 MG in NS 100 ML IV SCH (01:00)
[2024-12-04 11:52] VITALS: BP 126/75
== END 2024-12-04 12:14 | disposition home or self-care (01) ==
LOC: ATC 00:46
DX: L03.116 Cellulitis of left lower limb (principal); I10 Essential (primary) hypertension; G47.33 Obstructive sleep apnea (adult) (pediatric); J45.909 Unspecified asthma, uncomplicated; E66.01 Morbid (severe) obesity due to excess calories; E78.5 Hyperlipidemia, unspecified; Z99.89 Dependence on other enabling machines and devices; Z87.891 Personal history of nicotine dependence; Z88.8 Allergy status to other drugs, medicaments and biological substances; Z79.899 Other long term (current) drug therapy
CPT/HCPCS: 96365; J0696

== ENCOUNTER 2024-12-05 01:21 | Day surgery (SDC) | payer OTHER ==
[2024-12-05] MEDS ORDERED: CefTRIAXone Sodium 2,000 MG in NS 100 ML IV SCH (06:00)
[2024-12-05 12:01] VITALS: BP 120/70
== END 2024-12-05 12:18 | disposition home or self-care (01) ==
LOC: ATC 01:21
DX: L03.116 Cellulitis of left lower limb (principal); I10 Essential (primary) hypertension; E78.5 Hyperlipidemia, unspecified; J45.20 Mild intermittent asthma, uncomplicated; G47.33 Obstructive sleep apnea (adult) (pediatric); Z87.891 Personal history of nicotine dependence; Z88.1 Allergy status to other antibiotic agents; Z79.899 Other long term (current) drug therapy
CPT/HCPCS: 96365; J0696

== ENCOUNTER 2024-12-06 01:57 | Day surgery (SDC) | payer OTHER ==
[2024-12-06] MEDS ORDERED: CefTRIAXone Sodium 2,000 MG in NS 100 ML IV SCH (06:00)
[2024-12-06 11:27] VITALS: BP 154/83
== END 2024-12-06 11:48 | disposition home or self-care (01) ==
LOC: ATC 01:57
DX: L03.116 Cellulitis of left lower limb (principal); I10 Essential (primary) hypertension; E78.5 Hyperlipidemia, unspecified; E66.01 Morbid (severe) obesity due to excess calories; Z87.891 Personal history of nicotine dependence; Z88.8 Allergy status to other drugs, medicaments and biological substances; Z79.899 Other long term (current) drug therapy; G47.33 Obstructive sleep apnea (adult) (pediatric); Z99.89 Dependence on other enabling machines and devices; N40.0 Benign prostatic hyperplasia without lower urinary tract symptoms
CPT/HCPCS: 96365; J0696

== ENCOUNTER 2024-12-07 04:10 | Day surgery (SDC) | payer OTHER ==
[~2024-12-07 04:10] MED LIST changes: +CefTRIAXone Sodium 2,000 MG in NS 100 ML IV SCH
[2024-12-07 11:49] VITALS: BP 140/71
== END 2024-12-07 12:07 | disposition home or self-care (01) ==
LOC: ATC 04:10
DX: L03.116 Cellulitis of left lower limb (principal); I10 Essential (primary) hypertension; E78.5 Hyperlipidemia, unspecified; J45.20 Mild intermittent asthma, uncomplicated; G47.33 Obstructive sleep apnea (adult) (pediatric); N40.0 Benign prostatic hyperplasia without lower urinary tract symptoms; Z87.891 Personal history of nicotine dependence; Z88.1 Allergy status to other antibiotic agents; Z79.899 Other long term (current) drug therapy
CPT/HCPCS: 96365; J0696

== ENCOUNTER 2024-12-08 01:19 | Day surgery (SDC) | payer OTHER ==
[2024-12-08 11:40] VITALS: BP 150/74
== END 2024-12-08 12:16 | disposition home or self-care (01) ==
LOC: ATC 01:19
DX: L03.116 Cellulitis of left lower limb (principal); I10 Essential (primary) hypertension; E78.5 Hyperlipidemia, unspecified; J45.20 Mild intermittent asthma, uncomplicated; G47.33 Obstructive sleep apnea (adult) (pediatric); N40.0 Benign prostatic hyperplasia without lower urinary tract symptoms; Z87.891 Personal history of nicotine dependence; Z88.1 Allergy status to other antibiotic agents; Z79.899 Other long term (current) drug therapy
CPT/HCPCS: 96365; J0696

== ENCOUNTER → 2025-01-24 | Outpatient (CLI) | payer OTHER ==
[~2025-01-24] MED LIST changes: -CefTRIAXone Sodium 2,000 MG in NS 100 ML IV SCH
[2025-01-24 13:34] LABS: BASOPHILS ABSOLUTE AUTO 0.03 K/mm3 (0.00-0.23); BASOPHILS PERCENT AUTO 0 % (0-2); EOSINOPHILS PERCENT AUTO 0 % (0-6); Hematocrit 38.3 % (37.0-53.0); Hemoglobin 13.1 g/dL (13.5-17.5); IMMATURE GRAN ABSOLUTE AUTO 0.06 K/mm3 (0.00-0.10); IMMATURE GRAN PERCENT AUTO 1 % (0-1); LYMPHOCYTES ABSOLUTE AUTO 0.38 K/mm3 (0.84-5.20); LYMPHOCYTES PERCENT AUTO 4 % (21-46); MONOCYTES ABSOLUTE AUTO 0.87 K/mm3 (0.16-1.47); MONOCYTES PERCENT AUTO 9 % (4-13); Mean Corpuscular HGB 30.5 pg (26.0-34.0); Mean Corpuscular HGB Conc 34.2 g/dL (31.5-36.5); Mean Corpuscular Volume 89 fL (80-100); Mean Platelet Volume 9.2 fL (9.1-12.4); NEUTROPHILS ABSOLUTE AUTO 8.45 K/mm3 (1.96-9.15); NEUTROPHILS PERCENT AUTO 86 % (41-73); Platelet Count 194 K/mm3 (150-400); RDW Standard Deviation 48.4 fL (35.1-46.3); White Blood Cell Count 9.79 K/mm3 (4.00-11.30)
[2025-01-24 13:38] LABS: Albumin, Blood 2.9 g/dL (3.4-5.0); Albumin/Globulin Ratio 0.6 (0.8-1.8); Bilirubin, Total 0.9 mg/dL (0.1-1.0); Bun/Creatinine Ratio 15.9 (12.0-20.0); Calcium, Blood 9.4 mg/dL (8.5-10.1); Creatinine, Blood 1.51 mg/dL (0.60-1.20); Globulin, Blood 4.5 g/dL (2.2-4.0); Potassium, Blood 3.7 mmol/L (3.5-5.5); Total Protein, Blood 7.4 g/dL (6.4-8.2)
== END ==
LOC: LAB SHORT 13:09 → LAB 13:09
PROVIDERS: Physician Assistant Medical
DX: R50.9 Fever, unspecified (principal); N39.0 Urinary tract infection, site not specified
CPT/HCPCS: 80053; 83605; 85025; 87040; 87077; 87086; 87186

== ENCOUNTER → 2025-01-27 | Outpatient (CLI) | payer OTHER ==
[2025-01-27 15:34] LABS: BASOPHILS ABSOLUTE AUTO 0.05 K/mm3 (0.00-0.23); BASOPHILS PERCENT AUTO 1 % (0-2); EOSINOPHILS ABSOLUTE AUTO 0.09 K/mm3 (0.00-0.68); EOSINOPHILS PERCENT AUTO 1 % (0-6); Hemoglobin 11.6 g/dL (13.5-17.5); IMMATURE GRAN ABSOLUTE AUTO 0.07 K/mm3 (0.00-0.10); IMMATURE GRAN PERCENT AUTO 1 % (0-1); LYMPHOCYTES ABSOLUTE AUTO 0.71 K/mm3 (0.84-5.20); LYMPHOCYTES PERCENT AUTO 11 % (21-46); MONOCYTES ABSOLUTE AUTO 0.68 K/mm3 (0.16-1.47); MONOCYTES PERCENT AUTO 10 % (4-13); Mean Corpuscular HGB 29.5 pg (26.0-34.0); Mean Corpuscular HGB Conc 33.1 g/dL (31.5-36.5); Mean Corpuscular Volume 89 fL (80-100); Mean Platelet Volume 9.1 fL (9.1-12.4); NEUTROPHILS ABSOLUTE AUTO 5.04 K/mm3 (1.96-9.15); NEUTROPHILS PERCENT AUTO 76 % (41-73); Platelet Count 220 K/mm3 (150-400); RDW Coefficient Variation 14.9 % (11.7-14.2); RDW Standard Deviation 49.1 fL (35.1-46.3); Red Blood Cell Count 3.93 M/mm3 (4.30-5.90); White Blood Cell Count 6.64 K/mm3 (4.00-11.30)
[2025-01-27 15:48] LABS: Albumin, Blood 2.4 g/dL (3.4-5.0); Albumin/Globulin Ratio 0.6 (0.8-1.8); Bilirubin, Total 0.4 mg/dL (0.1-1.0); Bun/Creatinine Ratio 16.7 (12.0-20.0); Calcium, Blood 9.2 mg/dL (8.5-10.1); Creatinine, Blood 1.26 mg/dL (0.60-1.20); Globulin, Blood 4.1 g/dL (2.2-4.0); Potassium, Blood 3.4 mmol/L (3.5-5.5); Total Protein, Blood 6.5 g/dL (6.4-8.2)
== END ==
LOC: LAB SHORT 15:30 → LAB 15:30
PROVIDERS: Family Medicine
DX: N39.0 Urinary tract infection, site not specified (principal)
CPT/HCPCS: 80053; 85025